=== PATIENT | male | born 1970 | race Caucasian/White ===

== ENCOUNTER 2018-05-15 14:18 | Outpatient (CLI) | payer OTHER ==
--- NOTE | 2018-05-16 12:06 | Ultrasound Report ---
Procedure Date: 05/15/2018 Accession Number: [id number] / [id number] Procedure: US - Carotid Doppler Complete CPT Code: FULL RESULT: EXAM: BILATERAL CAROTID AND VERTEBRAL ARTERY DUPLEX DOPPLER ULTRASOUND: EXAM DATE: 05/15/2018 03:27 PM CLINICAL HISTORY: OTH SYMPTOMS AND SIGNS INVOLVING THE CIRC AND RESP. COMPARISON: None. TECHNIQUE: Grayscale imaging, color Doppler, and duplex spectral Doppler were used to evaluate the carotid and vertebral arteries bilaterally. Static images were obtained. FINDINGS: No significant plaque is identified in the right or left common or internal carotid arteries. Normal antegrade flow is present in bilateral vertebral arteries. VELOCITIES (cm/sec): VELOCITIES: Right: RCCA Prox: PSV 117.3 cm/sec. RCCA Dist: PSV 98.6 cm/sec, EDV 23.9 cm/sec. RECA: PSV 94.1 cm/sec. R Bulb: PSV 89.6 cm/sec, EDV 25.4 cm/sec, ICA/CCA ratio 0.91. JENISE Prox: PSV 73.2 cm/sec, EDV 23.9 cm/sec, ICA/CCA ratio 0.74. JENISE Mid: PSV 85.6 cm/sec, EDV 21.6 cm/sec, ICA/CCA ratio 0.87. JENISE Dist: PSV 92.8 cm/sec, EDV 20.3 cm/sec, ICA/CCA ratio 0.94. RVA: PSV 37.3 cm/sec. RVA flow direction: Antegrade. Left: LCCA Prox: PSV 105.3 cm/sec. LCCA Dist: PSV 112.0 cm/sec, EDV 29.1 cm/sec. LECA: PSV 119.5 cm/sec. L Bulb: PSV 94.1 cm/sec, EDV 28.4 cm/sec, ICA/CCA ratio 0.87. LICA Prox: PSV 82.2 cm/sec, EDV 27.6 cm/sec, ICA/CCA ratio 0.73. LICA Mid: PSV 120.2 cm/sec, EDV 24.7 cm/sec, ICA/CCA ratio 1.07. LICA Dist: PSV 102.3 cm/sec, EDV 24.7 cm/sec, ICA/CCA ratio 0.91. LVA: PSV 52.9 cm/sec. LVA flow direction: Antegrade. ICA diameter stenosis: Right: <50% by velocity and <70% by NASCET criteria. Left: <50% by velocity and <70% by NASCET criteria. IMPRESSION: 1. No significant bilateral carotid artery plaquing. 2. In the right carotid artery there are no elevated carotid artery velocities to suggest hemodynamically significant stenosis. 3. In the left carotid artery there are no elevated carotid artery velocities to suggest hemodynamically significant stenosis. 4. Normal antegrade flow is present in bilateral vertebral arteries. General Recommendations: Stenosis =50% ICA - Follow-up ultrasound 6-12 months Stenosis <50% ICA - High Risk Patient with plaque - Follow-up ultrasound 1-2 years Normal Study but High Risk Patient - Follow-up ultrasound 3-5 years Management recommendations and diagnostic criteria are based on current IAC endorsed standards in Carotid Artery Stenosis: Grayscale and Doppler Ultrasound Diagnosis. Validated velocity measurements with angiographic measurements and velocity criteria are extrapolated from diameter data as defined by the Society of Radiologists in Ultrasound Consensus Conference Radiology 2003; 229;340-346. RADIA
== END 2018-05-15 14:19 | disposition home or self-care (01) ==
LOC: DI 14:18
PROVIDERS: ATTEND Nurse Practitioner Family
DX: R09.89 Other specified symptoms and signs involving the circulatory and respiratory systems (principal)
CPT/HCPCS: 93880

== ENCOUNTER 2019-06-26 07:39 | Emergency (ER) | payer OTHER ==
[2019-06-26] MEDS ORDERED: LORazepam 2 MG/ML VIAL IVP STA ×3 (08:15→13:11)
[2019-06-26] MEDS ORDERED: FOLIC ACID INJ 1 MG, THIAMINE INJ 100 MG, MAGNESIUM SULFATE 2 GM, MULTIVITAMIN 10 ML in... IV STA ×5 (08:15)
--- NOTE | 2019-06-26 08:18 | ED Physician Documentation ---
History of Present Illness - Stated complaint Stated Complaint: WEAKNESS/SHAKING - Chief complaint Chief Complaint: Resp - History obtained from History obtained from: Patient, Family - History of Present Illness Timing: Today - Additonal information Additional information: 48-year-old male who drinks regularly got into the shower this morning to get ready to go to work and began to feel weak and lightheaded and shaky. He states that when he got out of the shower he felt like maybe he was having a heart attack or stroke or something. He is come to the emergency department now for evaluation and treatment. He states that he might of drink less alcohol than usual last night. Review of Systems Constitutional: reports: Fatigue, Sweats. denies: Fever, Chills, Myalgias Eyes: denies: Decreased vision Ears: denies: Ear pain Nose: denies: Rhinorrhea / runny nose, Congestion Throat: denies: Sore throat Cardiac: denies: Chest pain / pressure, Palpitations Respiratory: denies: Dyspnea, Cough GI: denies: Abdominal Pain, Nausea, Vomiting : denies: Dysuria, Frequency Skin: denies: Rash Musculoskeletal: denies: Neck pain, Back pain, Extremity pain Neurologic: reports: Generalized weakness, Other (shaky). denies: Focal weakness, Numbness PD PAST MEDICAL HISTORY - Present Medications Home Medications: Ambulatory Orders Medication Instructions Recorded Confirmed Escitalopram [Lexapro] 10 mg PO DAILY 06/26/19 06/26/19 Lorazepam [Ativan] 1 - 2 mg PO Q6HR PRN #30 tablet 06/26/19 Losartan Potassium 10 mg PO 06/26/19 Ondansetron Odt [Zofran] 4 mg TL Q6H PRN #10 tablet 06/26/19 Simvastatin 40 mg PO 06/26/19 - Allergies Allergies/Adverse Reactions: Allergies Allergy/AdvReac Type Severity Reaction Status Date / Time No Known Drug Allergies Allergy Verified 06/26/19 08:07 PD ED PE NORMAL - Vitals Vital signs reviewed: Yes (tachypneic and hypertensive ) - General General: Alert and oriented X 3, Well developed/nourished, Other (tremulous and concerned looking/anxious ) - HEENT HEENT: Atraumatic, PERRL, EOMI, Ears normal, Moist mucous membranes, Pharynx benign, Dentition benign - Neck Neck: Supple, no meningeal sign, No bony TTP - Cardiac Cardiac: RRR, No murmur - Respiratory Respiratory: No respiratory distress, Clear bilaterally - Abdomen Abdomen: Soft, Non tender - Back Back: No CVA TTP, No spinal TTP - Derm Derm: Normal color, Warm and dry, No rash - Extremities Extremities: No deformity, No edema - Neuro Neuro: Alert and oriented X 3, child support specialist 2-12 intact, No motor deficit, No sensory deficit, Normal speech Eye Opening: Spontaneous Motor: Obeys Commands Verbal: Oriented GCS Score: 15 - Psych Psych: Normal affect, Other (mood is anxious ) Results - Vitals Vitals: Vital Signs - 24 hr 06/26/19 06/26/19 06/26/19 07:50 08:10 08:45 Temperature 36.4 C L Heart Rate 85 78 82 Respiratory 28 H 18 18 Rate Blood Pressure 192/26 H 179/123 H 175/111 H O2 Saturation 99 98 97 06/26/19 06/26/19 06/26/19 09:30 10:02 10:36 Temperature Heart Rate 87 87 88 Respiratory 22 22 18 Rate Blood Pressure 195/112 H 168/91 H 180/98 H O2 Saturation 96 97 97 06/26/19 12:37 Temperature Heart Rate 97 Respiratory 13 Rate Blood Pressure 168/109 H O2 Saturation 98 Oxygen O2 Source Room air - EKG (time done) 0756 Rate: Rate (enter#) (76) Rhythm: NSR Compare to prior EKG: Old EKG unavailable Computer interpretation: Agree with computer - Labs Labs: Laboratory Tests 06/26/19 06/26/19 06/26/19 08:25 08:28 08:28 WBC 7.0 RBC 4.98 Hgb 15.9 Hct 46.6 MCV 93.6 MCH 31.9 H MCHC 34.1 RDW 13.3 Plt Count 195 MPV 9.6 Neut # (Auto) 5.1 Lymph # (Auto) 1.3 L [place] # (Auto) 0.5 Eos # (Auto) 0.0 Baso # (Auto) 0.1 Absolute Nucleated RBC 0.00 Nucleated RBC % 0.0 Sodium 138 Potassium 3.8 Chloride 96 L Carbon Dioxide 22 Anion Gap 20.0 H BUN 17 Creatinine 0.7 Estimated GFR (MDRD) 119 Glucose 141 H Lactic Acid Calcium 9.5 Total Bilirubin 1.1 H AST 101 H ALT 88 H Alkaline Phosphatase 59 Total Protein 8.0 Albumin 4.3 Globulin 3.7 Albumin/Globulin Ratio 1.2 Lipase 35 Urine Color DARK YELLOW Urine Clarity CLEAR Urine pH 5.5 Ur Specific [place] >=1.030 H Urine Protein 100 H Urine Glucose (UA) NEGATIVE Urine Ketones 15 H Urine Occult Blood NEGATIVE Urine Nitrite NEGATIVE Urine Bilirubin NEGATIVE Urine Urobilinogen 0.2 (NORMAL) Ur Leukocyte Esterase NEGATIVE Urine RBC 0-5 Urine WBC 0-3 Ur Squamous Epith Cells RARE Squamous Urine Bacteria Few Urine Mucus Moderate Strands Ur Microscopic Review INDICATED Urine Culture Comments NOT INDICATED Urine Opiates Screen NEGATIVE Ur Oxycodone Screen NEGATIVE Urine Methadone Screen NEGATIVE Ur Propoxyphene Screen NEGATIVE Ur Barbiturates Screen NEGATIVE Ur Tricyclics Screen NEGATIVE Ur Phencyclidine Scrn NEGATIVE Ur Amphetamine Screen NEGATIVE U Methamphetamines Scrn NEGATIVE U Benzodiazepines Scrn NEGATIVE Urine Cocaine Screen NEGATIVE U Cannabinoids Screen POSITIVE H Ethyl Alcohol < 5.0 06/26/19 09:26 WBC RBC Hgb Hct MCV MCH MCHC RDW Plt Count MPV Neut # (Auto) Lymph # (Auto) [place] # (Auto) Eos # (Auto) Baso # (Auto) Absolute Nucleated RBC Nucleated RBC % Sodium Potassium Chloride Carbon Dioxide Anion Gap BUN Creatinine Estimated GFR (MDRD) Glucose Lactic Acid 1.5 Calcium Total Bilirubin AST ALT Alkaline Phosphatase Total Protein Albumin Globulin Albumin/Globulin Ratio Lipase Urine Color Urine Clarity Urine pH Ur Specific [place] Urine Protein Urine Glucose (UA) Urine Ketones Urine Occult Blood Urine Nitrite Urine Bilirubin Urine Urobilinogen Ur Leukocyte Esterase Urine RBC Urine WBC Ur Squamous Epith Cells Urine Bacteria Urine Mucus Ur Microscopic Review Urine Culture Comments Urine Opiates Screen Ur Oxycodone Screen Urine Methadone Screen Ur Propoxyphene Screen Ur Barbiturates Screen Ur Tricyclics Screen Ur Phencyclidine Scrn Ur Amphetamine Screen U Methamphetamines Scrn U Benzodiazepines Scrn Urine Cocaine Screen U Cannabinoids Screen Ethyl Alcohol Procedures - IVC sono (time) 0812 Bedside IVC sono: IVC measures (cm) (1.02), Dehydration (est 1-2 liter deficit) PD MEDICAL DECISION MAKING - ED course Complexity details: reviewed results, re-evaluated patient, considered differential, d/w patient, d/w family ED course: 48 y/o male with chief complaint of shaky and weakness appears to be in alcohol withdrawal on arrival with markedly elevated blood pressure and shaking. He is mildly diaphoretic and has a normal EKG. He is found to be volume depleted on interrogation of the IVC and he is administered a banana bag IV and ativan 2mg IVP. The patient has improvement in his symptoms requires a second intravenous dose and he discusses his alcohol use with the social work supervisor and has decided he would like to take an option to take Ativan at home I have coached him through what to expect and we will provide him both with some Ativan and some Zofran as he has had vomiting when he is gone through withdrawal previously. He is given resources for treatment and follow-up and he has a primary care doctor for follow-up as well. Departure - Departure Disposition: Home, Self Care Clinical Impression: Alcohol withdrawal Qualifiers: Complication of substance-induced condition: with unspecified complication Qualified Code(s): F10.239 - Alcohol dependence with withdrawal, unspecified Condition: Stable Instructions: ED Withdrawal Alcohol Follow-Up: Donaldo Singer MD [Primary Care Provider] - Prescriptions: Lorazepam [Ativan] 1 - 2 mg PO Q6HR PRN #30 tablet PRN Reason: withdrawal symptoms Ondansetron Odt [Zofran] 4 mg TL Q6H PRN #10 tablet PRN Reason: Nausea / Vomiting Comments: Avoid alcohol and take the ativan as needed for symptoms. You may need to take 2 pills at a time today and decrease the dose daily.
[2019-06-26 08:43] LABS: MUDS CUTOFF CONCENTRATIONS CUTOFF CONC BELOW:
[2019-06-26 08:57] LABS: BILIRUBIN,URINE NEGATIVE (NEGATIVE); GLUCOSE, URINE (UA) NEGATIVE (NEGATIVE); KETONES,URINE (UA) 15 mg/dL (NEGATIVE); LEUKOCYTE ESTERASE, URINE NEGATIVE (NEGATIVE); NITRITE,URINE NEGATIVE (NEGATIVE); OCCULT BLOOD,URINE NEGATIVE (NEGATIVE); PH,URINE 5.5 PH (5.0-7.5); PROTEIN,URINE 100 mg/dL (NEGATIVE); UROBILINOGEN,URINE 0.2 (NORMAL) E.U./dL (NORMAL)
[2019-06-26 09:00] LABS: CLARITY,URINE CLEAR (CLEAR)
[2019-06-26 09:08] LABS: AMPHETAMINE SCREEN,URINE NEGATIVE (NEGATIVE); BENZODIAZEPINES SCREEN, URINE NEGATIVE (NEGATIVE); COCAINE SCREEN URINE NEGATIVE (NEGATIVE); METHADONE SCREEN, URINE NEGATIVE (NEGATIVE); METHAMPHETAMINES SCREEN, URINE NEGATIVE (NEGATIVE); OPIATE SCREEN, URINE NEGATIVE (NEGATIVE); OXYCODONE SCREEN, URINE NEGATIVE (NEGATIVE); PROPOXYPHENE SCREEN, URINE NEGATIVE (NEGATIVE); TRICYCLIC ANTIDEPRESSANT,URINE NEGATIVE (NEGATIVE)
[2019-06-26 09:13] LABS: BASOPHILS # (AUTO) 0.1 10^3/uL (0.0-0.1); BASOPHILS % (AUTO) 0.9 %; EOSINOPHILS % (AUTO) 0.6 %; HGB - HEMOGLOBIN 15.9 g/dL (14.0-18.0); LYMPHOCYTES # (AUTO) 1.3 10^3/uL (1.5-3.5); LYMPHOCYTES % (AUTO) 17.8 %; MEAN CORPUSCULAR HEMOGLOBIN 31.9 pg (27.0-31.0); MEAN CORPUSCULAR HGB CONC 34.1 g/dL (32.0-36.0); MEAN CORPUSCULAR VOLUME 93.6 fL (80.0-94.0); MEAN PLATELET VOLUME 9.6 fL (7.4-11.4); MONOCYTES # (AUTO) 0.5 10^3/uL (0.0-1.0); MONOCYTES % (AUTO) 7.4 %; NEUTROPHILS # (AUTO) 5.1 10^3/uL (1.5-6.6); NEUTROPHILS % (AUTO) 72.9 %; PLT - PLATELET COUNT 195 10^3/uL (130-450); RED BLOOD COUNT 4.98 10^6/uL (4.70-6.10); RED CELL DISTRIBUTION WIDTH 13.3 % (12.0-15.0)
[2019-06-26 09:21] LABS: BACTERIA,URINE Few /HPF (None Seen); MUCUS,URINE Moderate Strands; RBC,URINE 0-5 /HPF (0-5); SQUAMOUS EPITHELIAL CELL,UR RARE Squamous (<= Few)
[2019-06-26 09:24] LABS: ALBUMIN 4.3 g/dL (3.2-5.5); ALBUMIN/GLOBULIN RATIO 1.2 (1.0-2.2); ALKALINE PHOSPHATASE 59 IU/L (42-121); ALT ALANINE AMINOTRANSFERASE 88 IU/L (10-60); AST ASPARTATE AMINOTRANSFERASE 101 IU/L (10-42); BILIRUBIN,TOTAL 1.1 mg/dL (0.2-1.0); BUN - BLOOD UREA NITROGEN 17 mg/dL (6-20); CALCIUM 9.5 mg/dL (8.5-10.3); CARBON DIOXIDE - CO2 22 mmol/L (21-32); CHLORIDE 96 mmol/L (101-111); CREATININE 0.7 mg/dL (0.6-1.2); GFR - MDRD 119 (>89); GLUCOSE 141 mg/dL (70-100); LIPASE 35 U/L (22-51); SODIUM 138 mmol/L (135-145)
[2019-06-26 13:24] VITALS: BP 174/100
== END 2019-06-26 13:23 | disposition home or self-care (01) ==
LOC: ED 07:39
DX: F10.239 Alcohol dependence with withdrawal, unspecified (principal); E86.0 Dehydration
CPT/HCPCS: 36415; 80053; 80320; 81001; 83605; 83690; 85025; 93005; 96365; 96375; 96376; 99283; 99284; J2060; J3411; 80306; 81003; 87086

== ENCOUNTER 2023-10-10 01:43 | Emergency (ER) | payer OTHER ==
[2023-10-10] MEDS ORDERED: SODIUM CHLORIDE 0.9% 1,000 ML IV STA (01:53)
[2023-10-10] MEDS ORDERED: PHENobarbital 65 MG/ML VIAL IV STA (01:57)
--- NOTE | 2023-10-10 02:11 | ED Physician Documentation ---
History of Present Illness - Stated complaint Stated Complaint: etoh withdrawl - Chief complaint Chief Complaint: General - History obtained from History obtained from: Patient, Family - Additonal information Additional information: The patient comes to the emergency department chief complaint of "alcohol withdrawal". He states he has been drinking vodka pretty heavily every day for about the last month and a half and decided he wanted to stop today. His last drink was around 1600 and he began to have symptoms a few hours ago. Patient states he just feels shaky and he has some body aches. He has not been nauseated or vomiting. No hallucinations. No history of alcohol withdrawal seizures. Patient has a longstanding history of alcohol abuse. No history of pancreatitis or alcoholic hepatitis. No other complaints at this time. PD PAST MEDICAL HISTORY - Past Medical History Past Medical History: Yes Cardiovascular: Hypertension, High cholesterol Respiratory: None Endocrine/Autoimmune: None GI: None : None HEENT: None Psych: Depression Musculoskeletal: None Derm: None - Present Medications Home Medications: Ambulatory Orders Medication Instructions Recorded Confirmed Escitalopram [Lexapro] 10 mg PO DAILY 06/26/19 06/26/19 Losartan Potassium 100 mg PO 06/26/19 Atorvastatin [Lipitor] 20 mg PO DAILY 10/10/23 10/10/23 diazePAM [Valium] 5 mg PO TID PRN #9 tablet 10/10/23 - Allergies Allergies/Adverse Reactions: Allergies Allergy/AdvReac Type Severity Reaction Status Date / Time No Known Drug Allergies Allergy Verified 10/10/23 01:55 - Social History Does the pt smoke?: No Smoking Status: Never smoker Does the pt drink ETOH?: Yes Does the pt have substance abuse?: No - Immunizations Immunizations are current?: Yes PD ED PE NORMAL - Vitals Vital signs reviewed: Yes - General General: Alert and oriented X 3, No acute distress, Well developed/nourished - HEENT HEENT: Atraumatic, PERRL, EOMI, Moist mucous membranes - Neck Neck: Supple, no meningeal sign - Cardiac Cardiac: RRR, No murmur - Respiratory Respiratory: No respiratory distress, Clear bilaterally - Abdomen Abdomen: Soft, Non tender, Non distended - Derm Derm: Normal color, Warm and dry, No rash - Extremities Extremities: No deformity, No edema, No calf tenderness / cord - Neuro Neuro: Alert and oriented X 3, regional sales consultant 2-12 intact, No motor deficit, No sensory deficit, Normal speech, Other (Mild tremors, otherwise grossly intact) - Psych Psych: Normal mood, Normal affect Results - Vitals Vitals: Oxygen O2 Source Room air - Labs Labs: Laboratory Tests 10/10/23 10/10/23 02:13 02:13 WBC 4.2 L RBC 4.97 Hgb 15.6 Hct 44.9 MCV 90.3 MCH 31.4 H MCHC 34.7 RDW 14.7 Plt Count 119 L MPV 8.9 Neut # (Auto) 1.9 Lymph # (Auto) 1.6 [place] # (Auto) 0.5 Eos # (Auto) 0.1 Baso # (Auto) 0.1 Absolute Nucleated RBC 0.00 Nucleated RBC % 0.0 Sodium 134 L Potassium 3.6 Chloride 96 L Carbon Dioxide 22 Anion Gap 16.0 H BUN 10 Creatinine 0.5 L Estimated GFR (MDRD) 173 Glucose 103 Calcium 9.0 Total Bilirubin 0.7 AST 233 H ALT 188 H Alkaline Phosphatase 67 Total Protein 7.8 Albumin 4.3 Globulin 3.5 Albumin/Globulin Ratio 1.2 Lipase 28 PD Medical Decision Making - ED course Complexity details: reviewed old records, reviewed results, re-evaluated patient, considered differential, d/w patient, d/w family ED course: The patient was treated symptomatically with IV fluids and phenobarbital and worked up with labs. The patient was found to be feeling much better and laboratory studies were generally unremarkable. I have prescribed Valium for the patient for the next few days to help him come off his alcohol. I discussed with his significant other that he should not have access to the medication if he is also drinking. We have discussed the usual indications for follow-up and return. Departure - Departure Disposition: 01 Home, Self Care Clinical Impression: Alcohol withdrawal Qualifiers: Complication of substance-induced condition: uncomplicated Qualified Code(s): F10.930 - Alcohol use, unspecified with withdrawal, uncomplicated Condition: Stable Instructions: ED Withdrawal Alcohol Prescriptions: diazePAM [Valium] 5 mg PO TID PRN #9 tablet PRN Reason: Alcohol Withdrawal Comments: Your labs look fairly good with the exception of some mild elevations of your liver labs. This is not surprising, given the drinking you been doing recently. You have been treated with IV fluids and medication for the withdrawal. A prescription for medication to help ease you down from the alcohol has been electronically transmitted to the [facility] in [place]. Please pick this up later today after you wake up. If you decide to drink again, please do not take this medication along with the alcohol, as it can cause you to have dangerous levels of sedation. Forms: PCP List Discharge Date/Time: 10/10/23 05:20
[2023-10-10 02:17] LABS: BASOPHILS # (AUTO) 0.1 10^3/uL (0.0-0.1); BASOPHILS % (AUTO) 1.4 %; EOSINOPHILS # (AUTO) 0.1 10^3/uL (0.0-0.7); EOSINOPHILS % (AUTO) 1.2 %; HCT - HEMATOCRIT 44.9 % (42.0-52.0); HGB - HEMOGLOBIN 15.6 g/dL (14.0-18.0); LYMPHOCYTES # (AUTO) 1.6 10^3/uL (1.5-3.5); MEAN CORPUSCULAR HEMOGLOBIN 31.4 pg (27.0-31.0); MEAN CORPUSCULAR HGB CONC 34.7 g/dL (32.0-36.0); MEAN CORPUSCULAR VOLUME 90.3 fL (80.0-94.0); MEAN PLATELET VOLUME 8.9 fL (7.4-11.4); MONOCYTES # (AUTO) 0.5 10^3/uL (0.0-1.0); NEUTROPHILS # (AUTO) 1.9 10^3/uL (1.5-6.6); NEUTROPHILS % (AUTO) 45.9 %; PLT - PLATELET COUNT 119 10^3/uL (130-450); RED BLOOD COUNT 4.97 10^6/uL (4.70-6.10); RED CELL DISTRIBUTION WIDTH 14.7 % (12.0-15.0); WHITE BLOOD COUNT 4.2 x10^3/uL (4.8-10.8)
[2023-10-10 02:34] LABS: ALBUMIN 4.3 g/dL (3.2-5.5); ALBUMIN/GLOBULIN RATIO 1.2 (1.0-2.2); BILIRUBIN,TOTAL 0.7 mg/dL (0.2-1.0); CREATININE 0.5 mg/dL (0.6-1.3); POTASSIUM 3.6 mmol/L (3.5-4.5); TOTAL PROTEIN 7.8 g/dL (6.4-8.9)
[2023-10-10] MEDS ORDERED: DROPERIDOL 5 MG/2 ML VIAL IVP STA (04:01)
[2023-10-10] MEDS ORDERED: LORazepam 2 MG/ML VIAL IVP STA (04:01)
[2023-10-10 04:32] VITALS: O2SAT 93
[2023-10-10] MEDS ORDERED: LORazepam 1 MG TABLET PO STA (04:50)
[2023-10-10 05:29] VITALS: BP 134/88
== END 2023-10-10 05:20 | disposition home or self-care (01) ==
LOC: ED 01:43
DX: F10.930 Alcohol use, unspecified with withdrawal, uncomplicated (principal)
CPT/HCPCS: 36415; 80053; 83690; 85025; 96374; 99283; J2060; J2560; J8499